=== PATIENT | female | born 1960 | race Caucasian/White ===

== ENCOUNTER → 2021-12-16 11:51 | Outpatient (CLI) | payer OTHER, SELFPAY ==
--- NOTE | 2021-12-16 | DI.US.S_ITS ---
LIMITED ULTRASOUND OF RIGHT BREAST AND AXILLA: 12/16/2021 CLINICAL: Patient returns today to evaluate an asymmetry in the right breast. No prior exams were available for comparison. Ultrasound of the right breast 12-1 o'clock, and axilla regions was performed. Denis scale images of the real-time examination were reviewed. No significant abnormalities were seen sonographically in the right breast. There is slightly heterogeneous fibrocystic tissue in the area but no focal discrete abnormality to correlate to the possible mammographic asymmetry. IMPRESSION: PROBABLY BENIGN There is no sonographic correlate to the patient's screening mammography abnormality. A follow-up right mammogram in 6 months is recommended to demonstrate stability. Findings and recommendations were conveyed to the patient at time of exam. This exam was interpreted at Station ID: [id number]. Electronically Signed By: Alina valentin/:12/16/2021 14:39:41 letter sent: Followup Recommended Ultrasound BI-RADS: 3 Probably benign
== END ==
PROVIDERS: PCP Family Medicine; Referring Provider Family Medicine; Visit Provider Family Medicine
DX: R92.8 Other abnormal and inconclusive findings on diagnostic imaging of breast (principal); N64.89 Other specified disorders of breast
CPT/HCPCS: 76642